=== PATIENT | male | born 1950 | race Caucasian/White ===

== ENCOUNTER 2017-01-28 12:33 | Emergency (ER) | payer OTHER ==
[~2017-01-28] VITALS: Ht 165.1 cm; Wt 75.7 kg
[2017-01-28 12:48] VITALS: BP 133/77
--- NOTE | 2017-01-28 13:12 | NUR ---
PATIENT PRESENTS TO ED WITH C/O ULCER TO RIGHT PLANTAR X 1 MONTH VISITED PMD 12/23/2016; RX OF REGRANEX 1%;PT STATES HE HAS PERSISTANT PAIN AND ULCER TO RT FOOT ;PT STATES DRAINAGE COMING OUT OF THE ULCER;ALSO RECURRING PAIN TO PELVIC AREA, FROM SCROTUM UP TO SUPRAPUBIC AREA AND PAIN UPON MICTURATING X 4 MONTHS;HX OF DM;RX OF METFORMIN 1GM, GLIPIZIDE 10MG,JENUVIA 100MG, LANTUS 20UNITS, A . DENIES N/V/D; SKIN IS PINK/WARM/DRY; AAOX4 WITH EVEN AND STEADY GAIT; LUNGS CLEAR BL; HR EVEN AND REGULAR; PT DENIES ANY FEVER, CP, SOB, OR COUGH AT THIS TIME; PATIENT STATES PAIN OF 8/10 AT THIS TIME;PATIENT POSITIONED FOR COMFORT; HOB ELEVATED; BEDRAILS UP X2; BED DOWN. ER MD MADE AWARE OF PT STATUS.
--- NOTE | 2017-01-28 13:18 | NUR ---
XRAY AT BEDSIDE.
[2017-01-28 14:05] LABS: APPEARANCE,URINE CLEAR (CLEAR); BILIRUBIN,URINE NEGATIVE (NEGATIVE); BLOOD, URINE NEGATIVE (NEGATIVE); COLOR,URINE YELLOW (YELLOW); LEUKOCYTE ESTERASE ,URINE NEGATIVE (NEGATIVE); NITRITE, URINE NEGATIVE (NEGATIVE); UGLUCOSE NEGATIVE (NEGATIVE)
--- NOTE | 2017-01-28 14:10 | NUR ---
PT RESTING ON BED;NO ACUTE DISTRESS NOTED;WILL CONTINUE TO MONITOR PT.
[2017-01-28 15:25] VITALS: BP 138/73
--- NOTE | 2017-01-28 15:25 | NUR ---
Patient discharged with v/s stable. Written and verbal after care instructions given and explained. Patient alert, oriented and verbalized understanding of instructions. Ambulatory with steady gait. All questions addressed prior to discharge. ID band removed. Patient advised to follow up with PMD. Rx of ULTRAM AND CLINDAMYCIN given. Patient educated on indication of medication including possible reaction and side effects. Opportunity to ask questions provided and answered.
== END 2017-01-28 15:25 | disposition home or self-care (01) ==
LOC: MED 12:33
DX: E11.621 Type 2 diabetes mellitus with foot ulcer (principal); N50.812 Left testicular pain; N50.811 Right testicular pain
CPT/HCPCS: 73630; 76870; 81003; 82948; 99285; Q0092

== ENCOUNTER 2018-11-27 06:11 | Day surgery (SDC) | payer OTHER, MEDICAID ==
[~2018-11-27] VITALS: Ht 165.1 cm; Wt 71.7 kg
[2018-11-27] MEDS ORDERED: fentaNYL 0.05 MG/ML VIAL ONE (07:56)
[2018-11-27] MEDS ORDERED: LIDOCAINE 2% 100 MG/5 ML UJET TP ONE (07:57)
[2018-11-27] MEDS ORDERED: fentaNYL 0.05 MG/ML VIAL IVP ONE (08:55)
== END 2018-11-27 09:45 | disposition home or self-care (01) ==
LOC: MMU 06:11 → MOR 06:11
PROVIDERS: ATTEND Internal Medicine Gastroenterology
DX: Z12.11 Encounter for screening for malignant neoplasm of colon (principal); K64.8 Other hemorrhoids; I10 Essential (primary) hypertension; E11.9 Type 2 diabetes mellitus without complications; E78.00 Pure hypercholesterolemia, unspecified; Z79.899 Other long term (current) drug therapy; Z98.890 Other specified postprocedural states
CPT/HCPCS: 45378; J3010

== ENCOUNTER 2019-03-20 12:43 | Emergency (ER) | payer OTHER, MEDICAID ==
[~2019-03-20] VITALS: Ht 165.1 cm; Wt 73.5 kg
[2019-03-20 12:57] VITALS: BP 139/81
--- NOTE | 2019-03-20 13:00 | NUR ---
Patient ambulated to bed 11. RN evaluating patient at bedside.
--- NOTE | 2019-03-20 13:11 | NUR ---
68 YEAR OLD MALE COMPLAINS OF 7/10 RIGHT FOOT PAIN THAT IS ACHING. PATIENT STATES THE PAIN STARTED 2 DAYS AGO. BOTTOM OF RIGHT FOOT HAS OPEN WOUND WITH YELLOW DISCHARGE. PATIENT STATES THAT THE HOLE HAS BEEN THERE FOR MORE THAN 3 MONTHS BUT THE PAIN STARTED 2 DAYS AGO. PATIENT ALERT AND ORIENTED, BREATHING EVEN AND UNLABORED, SKIN WARM AND DRY. BED IN LOWEST POSITION, LOCKED, BED RAIL UPX1.
[2019-03-20] MEDS ORDERED: NACL 0.9% 1,000 ML IV SCH (13:34)
[2019-03-20] MEDS ORDERED: PIPERACILLIN/TAZOBACTAM 3.375 GM in DEXT 5% MINI-BAG PLUS 50 ML IV ONE (13:35)
[2019-03-20] MEDS ORDERED: NEOMYCIN/POLYMYXIN/BACITRACIN 0.9 GM/1 PKT TP ONE (13:35)
--- NOTE | 2019-03-20 13:46 | NUR ---
EKG completed at bedside by EMT.
--- NOTE | 2019-03-20 14:13 | NUR ---
XRAY AT BEDSIDE
[2019-03-20] MEDS ORDERED: PIPERACILLIN/TAZOBACTAM 3.375 GM VIAL IV ONE (14:22)
[2019-03-20 14:26] LABS: BASOPHILS # (AUTO) 0.1 K/uL (0.00-0.22); BASOPHILS % (AUTO) 0.7 % (0.0-2.0); EOSINOPHILS # (AUTO) 0.1 K/uL (0-0.4); EOSINOPHILS % (AUTO) 1.4 % (0.0-4.0); HEMATOCRIT 44.4 % (36-52); HEMOGLOBIN 14.7 g/dL (12.0-18.0); LYMPHOCYTES # (AUTO) 1.6 K/uL (2.0-11.5); LYMPHOCYTES % (AUTO) 17.3 % (20.5-51.1); MEAN CORPUSCULAR HEMOGLOBIN 31 pg (27-31); MEAN CORPUSCULAR HGB CONC 33 g/dL (33-37); MEAN CORPUSCULAR VOLUME 93.2 fL (80-94); MONOCYTES # (AUTO) 0.9 K/uL (0.8-1.0); MONOCYTES % (AUTO) 9.3 % (1.7-9.3); NEUTROPHILS # (AUTO) 6.6 K/uL (1.8-7.7); NEUTROPHILS % (AUTO) 71.3 % (42.2-75.2); PLATELET COUNT (AUTO) 261 K/uL (140-450); RED BLOOD CELL COUNT(AUTO) 4.76 MIL/uL (4.20-6.10); RED CELL DISTRIBUTION WIDTH 13.9 % (11.6-13.7); WHITE BLOOD COUNT (AUTO) 9.3 K/uL (4.8-10.8)
--- NOTE | 2019-03-20 14:42 | NUR ---
R PLANTAR FOOT WOUND APPLIED WITH NEOSPORIN OINTMENT, COVERED WITH NONADHERENT GAUZE AND KERLIX.
[2019-03-20 14:45] LABS: ANION GAP 17.7 (8-16); CARBON DIOXIDE 26.7 mmol/L (21-32); CREATININE 1.2 mg/dL (0.7-1.3); POTASSIUM 4.4 mmol/L (3.5-5.1)
[2019-03-20 14:46] LABS: PROTHROMBIN TIME 9.8 secs (10.8-13.4)
[2019-03-20 14:52] LABS: ALBUMIN 4.2 g/dL (3.4-5.0); TOTAL BILIRUBIN 0.5 mg/dL (0.0-1.0)
[2019-03-20 14:53] LABS: URIC ACID 3.5 mg/dL (2.6-7.2)
[2019-03-20 14:57] LABS: APPEARANCE,URINE CLEAR (CLEAR); BILIRUBIN,URINE NEGATIVE (NEGATIVE); BLOOD, URINE NEGATIVE (NEGATIVE); COLOR,URINE YELLOW (YELLOW); LEUKOCYTE ESTERASE ,URINE NEGATIVE (NEGATIVE); NITRITE, URINE NEGATIVE (NEGATIVE); UGLUCOSE NEGATIVE (NEGATIVE)
[2019-03-20 16:46] VITALS: BP 142/72
--- NOTE | 2019-03-20 16:46 | NUR ---
Patient discharged with v/s stable. Written and verbal after care instructions ABOUT DIABETIC NEUROPATHY AND SKIN INFECTIONS given and explained. Patient alert, oriented and verbalized understanding of instructions. Ambulatory with steady gait. All questions addressed prior to discharge. ID band removed. Patient advised to follow up with PMD. Rx of VOLTAREN, BACTRIM, AND KEFLEX given. Patient educated on indication of medication including possible reaction and side effects. Opportunity to ask questions provided and answered. PATIENT GIVEN COPY OF RESULTS TO TAKE TO PRIMARY CARE PROVIDER
== END 2019-03-20 16:46 | disposition home or self-care (01) ==
LOC: MED 12:43
DX: E11.40 Type 2 diabetes mellitus with diabetic neuropathy, unspecified (principal); L84 Corns and callosities; M79.672 Pain in left foot; G89.29 Other chronic pain; E78.00 Pure hypercholesterolemia, unspecified
CPT/HCPCS: 36415; 36600; 73630; 80053; 81003; 82550; 82803; 83605; 84484; 84550; 85025; 85379; 85610; 86140; 87040; 87086; 90715; 93005; 96365; 99284; J2543; J7030; Q0092

== ENCOUNTER 2019-06-05 00:29 | Emergency (ER) | payer OTHER, MEDICAID ==
[~2019-06-05] VITALS: Ht 165.1 cm; Wt 74.8 kg
[2019-06-05 00:30] VITALS: BP 146/84
--- NOTE | 2019-06-05 00:30 | NUR ---
TO BED # 06 AMBULATORY
[2019-06-05] MEDS ORDERED: VANCOMYCIN 1,000 MG VIAL ONE (01:12)
[2019-06-05] MEDS: VANCOMYCIN 1,000 MG in DEXTROSE 5% 250 ML IV ONE (01:42)
--- NOTE | 2019-06-05 01:53 | NUR ---
69 YO CO CO DIABETIC FOOT ULCER. PT STATED THAT HE JUST NOTICED IT TODAY. ULCER IS APPROX 2CM IN DIAMETER WITH CLEAR DRAINAGE BUT NO BLOOD. SUPERFICIAL WOUND. DRAINAGE SENT TO THE LAB FOR CULTURE PER ERMD ORDERS.
[2019-06-05 05:01] VITALS: BP 146/84
--- NOTE | 2019-06-05 05:02 | NUR ---
IV removed, catheter intact and site benign. Applied folded 4x4 gauze and tape to stop bleeding.
--- NOTE | 2019-06-08 10:15 | NUR ---
Late entry. Confirmed with RN that Vancomycin completed at 0300
--- NOTE | 2019-06-09 08:52 | NUR ---
LATE ENTRY---MADE CONTACT WITH PATIENT REGARDING POSITIVE CULTURE RESULTS. PT VERBALIZED UNDERSTANDING AND AGREED TO COME TO ED FOR RX QUILT SEWER.
== END 2019-06-05 05:02 | disposition home or self-care (01) ==
LOC: MED 00:29
DX: E11.621 Type 2 diabetes mellitus with foot ulcer (principal); L97.519 Non-pressure chronic ulcer of other part of right foot with unspecified severity
CPT/HCPCS: 36415; 87040; 87070; 87186; 99283; J3370